=== PATIENT | female | born 1970 | race Caucasian/White ===

== ENCOUNTER 2017-04-19 14:18 | Emergency (ER) | payer OTHER ==
[~2017-04-19] VITALS: Ht 157.5 cm; Wt 122.5 kg
[2017-04-19 14:22] VITALS: BP 147/75; PULSE 95; RESP 16; TEMP 97.6; O2SAT 96
[2017-04-19 16:13] LABS: BILIRUBIN,URINE NEGATIVE (NEGATIVE); BLOOD, URINE NEGATIVE (NEGATIVE); GLUCOSE,URINE 3+ (NEGATIVE); KETONES,URINE TRACE (NEGATIVE); PROTEIN URINE TRACE (NEGATIVE)
[2017-04-19 16:23] LABS: CLARITY/URINE HAZY (CLEAR); COLOR,URINE ORANGE (YELLOW); LEUKOCYTE ESTERASE ,URINE 1+ (NEGATIVE); NITRITE, URINE NEGATIVE (NEGATIVE)
[2017-04-19 16:28] LABS: BACTERIA,URINE FEW /HPF (None Seen); RBC,URINE NONE SEEN /HPF (0-3)
[2017-04-19 16:29] LABS: MUCUS,URINE None Seen /LPF (None Seen)
[2017-04-19 16:50] VITALS: BP 147/75; PULSE 95; RESP 16; TEMP 97.6; O2SAT 96
== END 2017-04-19 16:57 | disposition home or self-care (01) ==
LOC: SED 14:18
DX: J01.00 Acute maxillary sinusitis, unspecified (principal); N39.0 Urinary tract infection, site not specified; F17.200 Nicotine dependence, unspecified, uncomplicated; Z85.3 Personal history of malignant neoplasm of breast
CPT/HCPCS: 71010; 81000-TC; 81025; 87086; 87186-TC; 99285